=== PATIENT | female | born 1990 | race Two or more races ===

== ENCOUNTER 2016-08-14 12:24 | Emergency (ER) | payer BC ==
[~2016-08-14] VITALS: Ht 162.6 cm; Wt 51.3 kg
[2016-08-14] MEDS ORDERED: DEXAMETHASONE SOD PHOSPHATE 4 MG INJ IV ONE (12:45)
[2016-08-14] MEDS ORDERED: DEXAMETHASONE SOD PHOSPHATE 10 MG INJ ONE (12:54)
--- NOTE | 2016-08-14 13:11 | NUR ---
MSE COMPLETED, MEDS ADMINISTERED, PT D/C'D HOME , ACI/RX X1 GIVEN. PT AMBULATED W/O DIFF WITH SIGNIFICANT OTHER WHOM IS TO DRIVE. PT TOOK ALL BELONGINGS.
[2016-08-14 13:13] VITALS: BP 110/90
== END 2016-08-14 13:14 | disposition home or self-care (01) ==
LOC: ER 12:28
DX: T78.3XXA Angioneurotic edema, initial encounter (principal)
CPT/HCPCS: A4663; J1100